=== PATIENT | female | born 1970 | race Caucasian/White ===

== ENCOUNTER 2022-05-10 17:04 | Emergency (ER) | payer BC, SELFPAY ==
[2022-05-10] VITALS (19 sets, daily range): BP systolic 129–184; BP diastolic 58–123; PULSE 74–107; RESP 16–18; TEMP 36.6; O2SAT 100
--- NOTE | 2022-05-10 17:15 | ECG_ITS ---
Measurements Intervals [place] Rate: 88 P: -14 NH: 156 QRS: 19 QRSD: 98 T: 42 QT: 365 QTc: 443 Interpretive Statements SINUS RHYTHM WITH FREQUENT VENTRICULAR PREMATURE COMPLEXES IN A PATTERN OF VENTRICULAR TRIGEMINY ABNORMAL ECG NO PREVIOUS ECG AVAILABLE FOR COMPARISON Electronically Signed On 05-11-2022 14:02:30 CDT by Boris Tovar M.D.
[2022-05-10 17:22] LABS: Basophils Absolute Auto 0.1 K/mm3 (0.0-0.1); Basophils Percent Auto 0.6 % (0.2-1.2); Eosinophils Absolute Auto 0.2 K/mm3 (0-0.3); Eosinophils Percent Auto 1.8 % (0-4.4); Hematocrit 29.9 % (37.0-47.0); Immature Granulocyte Absolute 0.04 K/mm3 (0.00-0.031); Immature Granulocyte Percent A 0.4 % (0-0.5); Lymphocytes Absolute Auto 2.18 K/mm3 (0.9-3.2); Lymphocytes Percent Auto 19.3 % (18.3-44.2); Mean Corpuscular HGB Conc 30.1 g/dl (32-36); Mean Corpuscular Hemoglobin 24.7 pg (26-34); Mean Corpuscular Volume 82.1 fl (80-100); Monocytes Absolute Auto 0.5 K/mm3 (0.1-0.6); Monocytes Percent Auto 4.2 % (2.6-8.5); Neutrophils Absolute Auto 8.3 K/mm3 (1.3-6.7); Neutrophils Percent Auto 73.7 % (45.5-73.1); Platelet Count Result 419 k/mm3 (150-375); Red Blood Count 3.64 M/mm3 (4.2-5.4); Red Cell Distribution Width 17.4 % (11.5-14.5); White Blood Count 11.3 K/mm3 (4.5-10.0)
[2022-05-10 17:32] LABS: Alanine Aminotransferase 16 U/L (6-35); Albumin Level 3.7 g/dL (3.5-5.1); Alkaline Phosphatase 76 U/L (38-126); Anion Gap 11 mmol/L (8-16); Aspartate Amino Transferase 19 U/L (14-36); Bilirubin,Total 0.2 mg/dL (0.2-1.3); Blood Urea Nitrogen 9 mg/dL (7-17); Calcium 8.7 mg/dL (8.4-10.2); Carbon Dioxide 23 mmol/L (22-30); Chloride 102 mmol/L (98-107); Estimated CRCL calculation 103 ml/min; Estimated Glomerular Filt Rate > 60; Glucose 201 mg/dL (65-110); INR 1.1; Potassium 3.6 mmol/L (3.4-5.0); Prothrombin Time 13.5 Seconds (11.1-14.7); Sodium 136 mmol/L (137-145)
[2022-05-10 17:33] LABS: Partial Thromboplastin Time 25.5 SECONDS (22.3-36.8)
--- NOTE | 2022-05-10 19:40 | ED.GENADULT ---
HPI - General Adult General Chief complaint: Vaginal Bleeding Stated complaint: vaginal bleeding Time Seen by Provider: 05/10/22 18:55 History of Present Illness HPI narrative: 51-year-old female presented to the emergency department from [facility] office for evaluation of heavy menses since April 24. Patient states she has been having some associated lightheaded and dizziness. OB referred the patient to the ER for TXA and IV fluids. Patient denies any associate abdominal pain. Related Data Allergies Allergy/AdvReac Type Severity Reaction Status Date / Time adhesive tape Allergy Unknown Verified 12/18/15 13:39 No Known Allergies Allergy Verified 12/18/15 15:28 Review of Systems Review of Systems: CONSTITUTIONAL: Generalized weakness, lightheaded dizziness EYES: Denies visual changes, redness, or discharge. ENT: Denies rhinorrhea, congestion, sore throat, or otalgia. CARDIOVASCULAR: Denies chest pain, palpitations, or edema. RESPIRATORY: Denies cough or dyspnea. GASTROINTESTINAL: Denies abdominal pain, nausea, vomiting, or diarrhea. GENITOURINARY: Denies dysuria or hematuria. Vaginal bleeding SKIN: Denies rash or itching. MUSCULOSKELETAL: Denies back pain, joint pain, or myalgia. NEUROLOGIC: Denies headache, numbness, or weakness. [facility] Family History Family History (Updated 03/06/10 @ 22:29 by DOCTOR UNKNOWN) Other Asthma Diabetes mellitus Family history of coronary artery disease Family history of elevated blood lipids Hypertension Social History Social History Smoking status: Former smoker Smoking end date: 07/25/14 Alcohol intake: never Exam Narrative: APPEARANCE: Well appearing, no pain, no distress, well-nourished. HEAD: normocephalic, atraumatic. EYES: PERRLA/EOMI, conjunctivae clear. NOSE: Normal no drainage NECK: Supple. No adenopathy, no masses. RESPIRATORY: Airway patent, respirations nonlabored. Clear to auscultation bilaterally, no rales, rhonchi, wheezing. CARDIOVASCULAR: Regular rate and rhythm without murmurs rubs or gallops. ABDOMINAL: Soft, nontender, nondistended, normal bowel sounds Pelvic exam: Small amount of vaginal bleeding. No large clots in the vaginal vault. No active hemorrhage. MUSCULOSKELETAL: Moves all extremities. Strength/ROM intact, No edema, No calf tenderness. NEURO: Alert. Cranial nerves II through XII intact. Grossly intact SKIN: Warm, dry. Normal Color Course Course Emergency Course: Patient had follow-up with [facility] earlier today. Patient had an outpatient ultrasound that was ordered. Patient was also started on p.o. TXA. [facility] wanted the patient to increase her iron to twice daily. Patient did receive 1 L of normal saline and was treated with IV TXA. After the fluids patient felt improved. Patient had normal orthostatic vitals. Pelvic exam done after the TXA showed only a small amount of vaginal bleeding. Patient and family were comfortable with the plan with discharge and close follow-up. They were educated on reasons to return to the emergency department. All questions concerns were addressed. Vital Signs Vital signs: Vital Signs Temperature 97.8 F 05/10/22 17:08 Pulse Rate 107 H 05/10/22 17:08 Respiratory Rate 18 05/10/22 17:08 Blood Pressure 142/97 H 05/10/22 17:08 Pulse Oximetry 100 05/10/22 17:08 Oxygen Delivery Room Air 05/10/22 17:08 Temperature 97.8 F 05/10/22 17:08 Pulse Rate 85 05/10/22 22:17 Respiratory Rate 16 05/10/22 22:17 Blood Pressure 138/86 05/10/22 22:17 Pulse Oximetry 100 05/10/22 22:17 Oxygen Delivery Room Air 05/10/22 17:08 Medical Decision Making Vital Signs Vital Signs: Vital Signs Temperature 97.8 F 05/10/22 17:08 Pulse Rate 107 H 05/10/22 17:08 Respiratory Rate 18 05/10/22 17:08 Blood Pressure 142/97 H 05/10/22 17:08 Pulse Oximetry 100 05/10/22 17:08 Oxygen Delivery Room Air 05/10/22 17:08 Temperature 97.8 F 05/10/22 17:08 Pul
[2022-05-10] MEDS: SODIUM CHLORIDE 0.9% IV 1,000 ML 999 ML IV CONT (19:42)
[2022-05-10] MEDS: TRANEXAMIC ACID 1,000MG/ISO100 1,000 MG/100 ML BAG 200 MG IVPB (20:06)
== END 2022-05-10 23:08 | disposition home or self-care (01) ==
PROVIDERS: Emergency Medicine; Emergency Provider Emergency Medicine; PCP Obstetrics & Gynecology Gynecology
DX: N92.0 Excessive and frequent menstruation with regular cycle (principal); Z87.891 Personal history of nicotine dependence; I49.3 Ventricular premature depolarization; R00.8 Other abnormalities of heart beat
CPT/HCPCS: 36415; 80053; 85025; 85610; 85730; 86850; 86900; 86901; 93005; 96361; 96365; 99284; J7030

== ENCOUNTER → 2022-05-12 13:46 | Outpatient (CLI) | payer BC, SELFPAY ==
--- NOTE | ~2022-05-12 | US_ITS ---
EXAMINATION: US pelvic complete w TV DATE: 05/12/2022 14:19 INDICATION: Abnormal uterine bleeding TECHNIQUE: Multiple transabdominal and endovaginal sonographic images of the pelvis were obtained. COMPARISON: None. FINDINGS: The uterus measures 11.3 x 6.0 x 6.5 cm. There are multiple nabothian cysts of the cervix. The endometrial complex measures 14 mm. The right ovary is not visualized however no right adnexal ab normality is seen. The left ovary measures 2.6 x 2.0 x 2.1 cm. There is normal vascular flow in the l eft ovary. There is no free fluid in the pelvis. IMPRESSION: 1. Endometrial thickness measuring 14 mm. If the patient is premenopausal, this could be within eduin l limits. If the patient is postmenopausal, this may reflect hyperplasia, polyp, or malignancy. Endom etrial sampling would be recommended. Reviewed, dictated and finalized at location A. IMPRESSION: 1. Endometrial thickness measuring 14 mm. If the patient is premenopausal, this could be within normal limits. If the patient is postmenopausal, this may refl ect hyperplasia, polyp, or malignancy. Endometrial sampling would be recommende shakir
== END ==
PROVIDERS: PCP Obstetrics & Gynecology Gynecology; Visit Provider Obstetrics & Gynecology Gynecology
DX: N93.9 Abnormal uterine and vaginal bleeding, unspecified (principal); R93.89 Abnormal findings on diagnostic imaging of other specified body structures
CPT/HCPCS: 76830; 76856

== ENCOUNTER 2022-05-31 00:29 | Day surgery (SDC) | payer BC, SELFPAY ==
[2022-05-26 15:28] VITALS: BMI 48.4
--- NOTE | 2022-05-26 15:33 | PC.NURSE ---
Report to the Outpatient Waiting Room, entrance under the green pavilion located off [facility], at time 0930 on date 05/31/22. Planned Procedure Time: 1130. Time changes happen often and if your time is changed the preop area will call you the afternoon before. - You and your visitor will be asked to self-screen and do not enter if you have any COVID symptoms. - We encourage only one visitor and NO visitors under age 16 are allowed at this time. Your visitor will receive communication by the phone number that is given day of service. - The patient visitor is requested to social distance or may leave the building when not with patient due to restrictions. - A mask is OPTIONAL within the hospital. Patients may have clear liquids (water, carbonated beverages, clear teas, apple juice) until 3 hours prior to surgery with a maximum of 20 ounces. - No food from midnight until time of surgery Take the following medications with a SIP of water the morning of surgery: NONE Medications to discontinue per physician: CONTINUING IRON D/T ANEMIA WITH CURRENT BLEEDING Date to take last dose: N/A Please no make-up, nail lithuanian, hairspray, perfume, deodorant, or body powder the day of surgery. No jewelry (including any body piercings) or valuables the day of surgery, leave them at home. Please take a shower or bath the night before, or the morning of, surgery with an antibacterial soap. Wear comfortable, loose fitting clothing. - Jewelry must be removed prior to entering the operating room. Rings and piercings that are not removed may be cut off. - The hospital will not accept responsibility for valuables. - Please leave all valuables, including medications, at home the day of surgery. If you are going home after surgery, a licensed tank driver must drive you home. - NO public transportation without another adult. - We recommend that an adult stay with you for 24 hours following discharge. - We also recommend that you do not drive, make important decision, drink alcoholic beverages, or take any drugs that were not prescribed by your health care provider for at least 24 hours after your discharge time. Follow any additional instructions given to you from your surgeon. If you or anyone in your household have experienced Covid symptoms in the past week, please notify your surgeon or the nurse liaison at the phone number below for possible testing. Telephone instructions given to ADRY GONSALES and asked if any additional questions and then verbalized understanding. Patient advised to call surgeon office or pre surgery nurse liaison [phone] if any additional questions.
[2022-05-31] VITALS (10 sets, daily range): BP systolic 124–151; BP diastolic 61–82; PULSE 60–76; RESP 12–16; TEMP 36.6–37; O2SAT 96–100
--- NOTE | 2022-05-31 07:31 | WPDHPUPDATE1 ---
History and Physical Update Update Date/Time: 05/31/22 07:31 History and Physical has been reviewed, including an updated exam of the patient. There are NO changes in the patient's condition. Risks, benefits, and alternatives have been discussed and questions answered. Patient agrees to proceed with procedure.
--- NOTE | 2022-05-31 07:31 | PM.HPGS ---
History of Present Illness History of Present Illness Consent: Risks, benefits, and alternatives have been discussed and questions answered. Patient agrees to proceed with procedure. Chief complaint: Menorrhagia Narrative: Anny Huffman is a 51 year old female prolonged and heavy bleeding. Pelvic ultrasound reveals slight enlarged uterus at 11cm. The patient is anemic with a hemoglobin of 9. It was recommended to workup with D&C hysteroscopy. Risks of infection, bleeding, and perforation were reviewed. Patient voices understanding and agrees to proceed. Review of Systems Constitutional: Constitutional: Reports fatigue and Reports headache(s) Respiratory: Respiratory: Reports dyspnea Gastrointestinal: Gastrointestinal: Reports constipation, Reports heartburn, Reports diarrhea and Reports nausea Genitourinary: Genitourinary: Reports vaginal dryness Musculoskeletal: Musculoskeletal: Reports back pain and Reports arthralgias [facility] Past Medical History Medical History (Updated 05/31/22 @ 07:38 by Maggi Clark MD) Asthma History of PCOS Migraines Tonsil, abscess 2003 managed surgically Surgical History Surgical History (Updated 05/31/22 @ 07:36 by Maggi Clark MD) History of x2 History of hysteroscopy in 1999 for infertility workup Family History Family History (Updated 03/06/10 @ 22:29 by DOCTOR UNKNOWN) Other Asthma Diabetes mellitus Family history of coronary artery disease Family history of elevated blood lipids Hypertension Social History Social History Smoking status: Current some day smoker Tobacco type: cigarettes and e-cigarettes/vaping Smoking end date: 07/25/14 Alcohol intake: current Alcohol use details: RARE Substance use: current Substance use type: marijuana Other substance usage details: CBD DROPS/OIL Living arrangements: with family Spiritual care concerns: No Meds Home Medications and Allergies Home Medications Medication Instructions Recorded Confirmed Type cetirizine 5 mg-pseudoephedrine ER 1 tablet PO BID 05/26/22 05/26/22 History 120 mg tablet,extended release,12hr (Zyrtec-D) ferrous sulfate 325 mg (65 mg 325 mg PO BID 05/26/22 05/26/22 History iron) tablet (Iron (ferrous sulfate)) omeprazole 20 mg tablet,delayed 20 mg PO DAILY 05/26/22 05/26/22 History release tranexamic acid 650 mg tablet 1,300 mg PO TID 05/26/22 05/26/22 History Allergies Allergy/AdvReac Type Severity Reaction Status Date / Time adhesive tape Allergy Unknown Blister Verified 05/26/22 15:25 Exam Const: General: healthy appearing and alert Orientation/consciousness: patient oriented x3 Resp: Effort & Inspection: normal respiratory effort Auscultation: clear to auscultation bilaterally Cardio: Rate: regular rate Rhythm: regular rhythm GI: GI Palp: Yes Soft to palpation, No Tenderness to palpation present (GI) and No Palpable mass present : External Female Exam: normal external appearance Speculum Exam - Vagina: normal appearance of the vagina and normal vaginal discharge Speculum Exam - Cervix: normal appearance of the cervix Bimanual exam- vagina & uterus: consistency normal and enlarged ( 12 week size) Bimanual Exam- Adnexa, other: normal adnexae and No adnexal tenderness Neuro: General: patient oriented x3 Assessment and Plan Assessment and plan (1) Menorrhagia: Code(s): N92.0 - Excessive and frequent menstruation with regular cycle Status: Acute Assessment and Plan: plan to proceed with D&C hysteroscopy
[2022-05-31] MEDS: ACETAMINOPHEN 500 MG TABLET 1000 MG PO (09:45)
--- NOTE | 2022-05-31 09:59 | WPDANESEPPF ---
Anes - Initial Pre Proc Eval Procedure: Operation Date: 05/31/22 11:30 Proposed Procedures p Hysteroscopy with Dilation and Curettage - Maggi Clark MD Date/Time: 05/31/22 09:59 Surgeon: Maggi Clark MD Pre Op Diagnosis: Menorrhagia Patient Data Age: 51 Gender: F Height: 1.68 m Weight: 136.1 kg Allergies Allergy/AdvReac Type Severity Reaction Status Date / Time adhesive tape Allergy Unknown Blister Verified 05/26/22 15:25 Home Medications Medication Instructions Recorded Confirmed Type cetirizine 5 mg-pseudoephedrine ER 1 tablet PO BID 05/26/22 05/26/22 History 120 mg tablet,extended release,12hr (Zyrtec-D) ferrous sulfate 325 mg (65 mg 325 mg PO BID 05/26/22 05/26/22 History iron) tablet (Iron (ferrous sulfate)) omeprazole 20 mg tablet,delayed 20 mg PO DAILY 05/26/22 05/26/22 History release tranexamic acid 650 mg tablet 1,300 mg PO TID 05/26/22 05/26/22 History Patient hx anesthesia problems: none Family hx anesthesia problems: none Results Review: All pre-operative results and documents have been reviewed as part of the pre-operative evaluation. [facility] Past Medical History Medical History Asthma History of PCOS Migraines Tonsil, abscess 2003 managed surgically Surgical History Surgical History History of x2 History of hysteroscopy in 1999 for infertility workup Family History Family History Other Asthma Diabetes mellitus Family history of coronary artery disease Family history of elevated blood lipids Hypertension Social History Social History Smoking status: Current some day smoker Tobacco type: cigarettes and e-cigarettes/vaping Smoking end date: 07/25/14 Alcohol intake: current Alcohol use details: RARE Substance use: current Substance use type: marijuana Other substance usage details: CBD DROPS/OIL Living arrangements: with family Spiritual care concerns: No Anes - Eval Final PreProcedure Day of Procedure 05/31/22 09:59 Patient weight: morbidly obese Heart: regular rate and rhythm Lungs: clear to auscultation Airway: Mallampati scale class II Neurological: alert and oriented Last oral intake: >/= 8 hours ASA classification: III Emergent: no Anesthetic plan: proceed Anesthesia type and monitoring: general and standard monitoring Results Review: All pre-operative results and documents have been reviewed as part of the pre-operative evaluation. Informed Consent: The patient's anesthetic plan and its attendant risks and benefits were discussed with the patient/family/POA. Questions were solicited and answers provided to the satisfaction of the patient/family/POA.
[2022-05-31] MEDS: LACTATED RINGERS 1,000 ML 30 ML IV CONT ×2 (10:01→12:08)
[2022-05-31] MEDS: LIDOCAINE HCL 1% PF 30 ML VIAL INFILTRATE (11:22)
--- NOTE | 2022-05-31 12:04 | W.PM.PROC2 ---
Procedure Note - Detailed Date of Procedure 05/31/22 Pre-op Diagnosis Menorrhagia Post-op Diagnosis Same Procedure Performed D&C hysteroscopy with MyoSure resection Surgeon Maggi Clark MD Anesthesia MAC and Local Findings uterus sounds to 10cm there is a sessile fibroid on the right and lateral fundus, there is an irregular mass on the right lateral sidewall, there are fibroids above the sessile fibroid in the midline Description of Procedure the patient was taken to the operating room and placed under anesthesia in the dorsal lithotomy position. She was prepped and draped in usual sterile fashion. [place] speculum was placed in the vagina and the cervix grasped on the anterior lip with a tenaculum. The uterus is sounded to 10cm. The cervix is serially dilated to an 8 [place]. The diagnostic hysteroscope was placed with the above-stated findings. The MyoSure device is opened and placed and the majority of the sessile fibroid on the right lateral fundus is removed. The irregular area on the right lateral sidewall is removed in its entirety. The visualization became poor due to bleeding in the cavity. The 2nd MyoSure device hit calcifications and quit working as the blade broke. Due to poor visualization it was decided to stop the procedure. The medium sharp curette is used to curette the endometrium until a good uterine cry was noted in all areas. All instruments are removed. Sponge, needle, and instruments are correct per the OR staff. The patient was awakened from anesthesia and taken to recovery in stable condition. The fluid intake in and out matched throughout the procedure. Estimated Blood Loss 25 Drains No Packing No Pathology Yes ( Endometrial shavings and curettings) Complications No immediate complications Condition Stable Disposition PACU
[2022-05-31] MEDS: fentaNYL CITRATE INJ (*CRX) 100 MCG/2 ML VIAL 25 MCG IV PUSH ×2 (12:51→12:55)
[2022-05-31] MEDS: oxyCODONE HCL (*CRX) 5 MG TAB IR PO (13:59)
== END 2022-05-31 14:50 | disposition home or self-care (01) ==
PROVIDERS: Visit Provider Obstetrics & Gynecology Gynecology
PROC: 0U5B8ZZ Destruction of Endometrium, Via Natural or Artificial Opening Endoscopic (ICD-10-PCS; CPT 58563; principal; 2022-05-31 11:30)
DX: N92.0 Excessive and frequent menstruation with regular cycle (principal); D25.9 Leiomyoma of uterus, unspecified; Z87.891 Personal history of nicotine dependence; F12.90 Cannabis use, unspecified, uncomplicated; E66.01 Morbid (severe) obesity due to excess calories; Z68.42 Body mass index [BMI] 45.0-49.9, adult
CPT/HCPCS: 58561; 88305; A9270; J1100; J2250; J2405; J2704; J3010; J7120